=== PATIENT | male | born 2000 ===

== ENCOUNTER 2021-12-21 12:33 | Emergency (ER) | payer SELFPAY ==
[2021-12-21 18:17] LABS: Basophils % (Auto) 0.6 % (0.0-1.8); Eosinophils # (Auto) 0.1 K/mm3 (0.0-0.4); Eosinophils % (Auto) 1.3 % (0.0-4.3); Hematocrit 41.9 % (35.5-45.6); Hemoglobin 14.1 gm/dl (11.8-15.2); Lymphocytes % (Auto) 32.7 % (13.4-35.0); Mean Corpuscular HGB Conc 34 % (32-34); Mean Corpuscular Volume 85 fl (84-94); Monocytes # (Auto) 0.2 K/mm3 (0.0-0.8); Monocytes % (Auto) 3.8 % (0.0-7.3); Platelet Count 225 K/mm3 (140-440); Red Blood Count 4.94 M/mm3 (3.65-5.03); Red Cell Distribution Width 12.3 % (13.2-15.2)
[2021-12-21 18:34] LABS: BUN/Creatinine Ratio 8; Blood Urea Nitrogen 8 mg/dL (9-20); Calcium 9.5 mg/dL (8.4-10.2); Hemolysis Index 7
--- NOTE | 2021-12-22 03:54 | Emergency Department Report ---
ED Psych HPI - General Chief Complaint: Psych Stated Complaint: MH/NOT EATING/NOT TAKING MEDS Time Seen by Provider: 12/21/21 21:12 Source: patient Mode of arrival: Ambulatory - History of Present Illness Initial Comments: Patient is 21-year-old male brought in by law enforcement for psychiatric evaluation. Reports SI and HI. - Related Data Allergies Allergy/AdvReac Type Severity Reaction Status Date / Time Unable to Assess Allergy Unverified 12/21/21 13:32 ED Review of Systems ROS: Stated complaint: MH/NOT EATING/NOT TAKING MEDS Other details as noted in HPI Constitutional: denies: chills, fever Respiratory: denies: cough, shortness of breath, wheezing Cardiovascular: denies: chest pain, palpitations Gastrointestinal: denies: abdominal pain, nausea, diarrhea Musculoskeletal: denies: back pain, joint swelling, arthralgia Skin: denies: rash, lesions Neurological: denies: headache, weakness, paresthesias Psychiatric: denies: anxiety, depression ED Physical Exam - General Limitations: Other General appearance: alert, in no apparent distress - Head Head exam: Present: atraumatic, normocephalic - Respiratory Respiratory exam: Present: normal lung sounds bilaterally. Absent: respiratory distress - Cardiovascular Cardiovascular Exam: Present: regular rate, normal rhythm. Absent: systolic murmur, diastolic murmur, rubs, gallop - GI/Abdominal GI/Abdominal exam: Present: soft, normal bowel sounds - Rectal Rectal exam: Present: deferred - Extremities Exam Extremities exam: Present: normal inspection - Neurological Exam Neurological exam: Present: alert, oriented X3 - Psychiatric Psychiatric exam: Present: suicidal ideation. Absent: homicidal ideation - Skin Skin exam: Present: warm, dry, intact, normal color ED Course Vital Signs 12/21/21 12/22/21 20:10 02:48 Temperature 98.6 F 98.1 F Pulse Rate 61 59 L Respiratory 18 18 Rate Blood Pressure 116/66 116/61 [Left] O2 Sat by Pulse 97 97 Oximetry ED Medical Decision Making - Lab Data Result diagrams: 12/21/21 18:06 12/21/21 18:06 - Medical Decision Making Labs unremarkable. Patient medically cleared. 1013 filed. Awaiting mental health assessment. Critical care attestation.: If time is entered above; I have spent that time in minutes in the direct care of this critically ill patient, excluding procedure time. ED Disposition Clinical Impression: Suicidal ideation Disposition: 30 STILL A PATIENT Is pt being admited?: No Condition: Stable
--- NOTE | 2021-12-22 10:17 | Consultation ---
History of Present Illness - Reason for Consult Consult date: 12/22/21 Reason for consult: SI - History of Present Psychiatric Illness HPI: Patient is 21-year-old male brought in by law enforcement for psychiatric evaluation. Reports SI and HI. The patient was seen today. He says he feels anxious cause he needs to smoke. I advise the patient that this is a smoke free facility and I would give him a patch. The patient says "no, I need to smoke." He says he came here because he was dehydrated. The patient says "I told them I wanted to starve myself to . But it was just talk anyway." The patient denies feeling that way. "he says I don't feel like hurting myself or anybody." The patient denies hallucinations of any kind. He says he has a history of schizophrenia and takes risperidone 2mg twice daily and cogentin. The patient says he is compliant with his medications. He denies any illicit drug use or alcohol. The patient denies any past attempts of suicide. He says "I shouldn't be here. I want to go home. It was just talk." PAST PSYCHIATRIC HISTORY: Diagnoses: Schizophrenia Suicide attempts or Self-harm behavior: Denies Prior psychiatric hospitalizations: Yes Substance Abuse history: Nicotine Previous psychiatric medications tried: Risperidone, cogentin Outpatient treatment: Yes PAST MEDICAL HISTORY: None reported Family Psychiatric History: None reported or documented SOCIAL HISTORY Marital Status: Single Living Arrangements: alone Employment Status: Unemployed Access to guns/weapons: Denies Education: History of Abuse:Denies Legal History: Denies REVIEW OF SYSTEMS Constitutional: Negative for weight loss ENT: Negative for stridor Respiratory: Negative for cough or hemoptysis All other systems reviewed and are negative MENTAL STATUS EXAMINATION General Appearance and Behavior: Age appropriate, wearing appropriate clothes, cooperative, polite with questioning, good eye contact Cooperation: cooperative Psychomotor Behavior: Psychomotor normal Mood: anxious Affect and affective range: congruent with stated affect Thought Process: Goal directed Thought Content: None Speech: Normal volume, Regular rate and rhythm Suicidal Ideation: Denies Homicidal Ideation: Denies Hallucination: Denies Delusions: Denies Impulse Control: Limited Insight and Judgment: Limited Memory: Intact Attention:attentive Orientation: Alert and oriented Diagnoses: Hx of Schizophrenia Treatment Plan d/c 1013 Continue home medications Sitter: per primary Medical: Per primary Disposition: Do not recommend acute psychiatric inpatient treatment. The patient understands that if SI/HI arise he is to seek immediate assistance The hedis analyst to further discuss safety plan and give all resources Will sign off. Thanks. Case staffed by Dr. Pruitt Medications and Allergies Allergies Allergy/AdvReac Type Severity Reaction Status Date / Time No Known Allergies Allergy Unverified 12/22/21 07:33 Mental Status Exam - Vital signs Last Vital Signs Temp 98.8 F 12/22/21 07:41 Pulse 89 12/22/21 07:41 Resp 20 12/22/21 07:41 BP 119/78 12/22/21 07:41 Pulse Ox 99 12/22/21 07:41 Results Result Diagrams: 12/21/21 18:06 12/21/21 18:06 Abnormal lab results 12/21/21 12/21/21 12/21/21 Range/Units 18:06 18:06 18:06 RDW (13.2-15.2) % BUN 8 L (9-20) mg/dL Glucose 118 H (75-100) mg/dL Salicylates < 0.3 L (2.8-20.0) mg/dL Acetaminophen 5.0 L (10.0-30.0) ug/mL 12/21/21 Range/Units 18:06 RDW 12.3 L (13.2-15.2) % BUN (9-20) mg/dL Glucose (75-100) mg/dL Salicylates (2.8-20.0) mg/dL Acetaminophen (10.0-30.0) ug/mL All other labs normal.
[2021-12-22] MEDS ORDERED: LORazepam 2 MG/ML VIAL IM PRN (11:54)
[2021-12-22] MEDS ORDERED: HALOPERIDOL LACTATE 5 MG/1 ML INJ IM PRN (11:54)
--- NOTE | 2021-12-22 11:56 | Event Note ---
Date: 12/22/21 The patient was evaluated in the emergency department for symptoms described in the history of present illness. He/she was evaluated in the context of the global COVID-19 pandemic, which necessitated consideration that the patient might be at risk for infection with the virus that causes COVID-19. Institutional protocols and algorithms that pertain to the evaluation of patients at risk for COVID-19 are in a state of rapid change based on information released by regulatory bodies including the CDC and federal and state organizations. These policies and algorithms were followed during the patient's care in the emergency department. Please note that these policies, procedures and recommendations changed on a rapid basis. Laboratory studies, vital signs, nursing documentation, ER documentation, and psychiatric documentation are reviewed and appreciated. Nursing team reports no acute events this morning or concerns. The patient is awake and does not appear to be in any acute distress The patient was deemed medically suitable for psychiatric disposition and placement during his initial ER evaluation. The patient continues to remain medically suitable for psychiatric placement and disposition. He is currently pending psychiatric placement. The psychiatric team have advised initiation of 1013, and state that they will fill out a 1013. As needed medications ordered. Currently awaiting urinalysis, drug screen and COVID swab. These laboratory test do not preclude psychiatric placement disposition at this time, the patient at this point time does not appear to have an emergent medical condition which would preclude psychiatric disposition Vital Signs 12/21/21 12/22/21 12/22/21 20:10 02:48 03:00 Temperature 98.6 F 98.1 F Pulse Rate 61 59 L Respiratory 18 18 Rate Blood Pressure 116/66 116/61 [Left] O2 Sat by Pulse 97 97 100 Oximetry 12/22/21 12/22/21 07:38 07:41 Temperature 98.8 F Pulse Rate 89 Respiratory 20 Rate Blood Pressure 119/78 [Left] O2 Sat by Pulse 99 99 Oximetry Lab Results 12/21/21 12/21/21 12/21/21 Range/Units 18:06 18:06 18:06 WBC (4.5-11.0) K/mm3 RBC (3.65-5.03) M/mm3 Hgb (11.8-15.2) gm/dl Hct (35.5-45.6) % MCV (84-94) fl MCH (28-32) pg MCHC (32-34) % RDW (13.2-15.2) % Plt Count (140-440) K/mm3 Lymph % (Auto) (13.4-35.0) % Leslie % (Auto) (0.0-7.3) % Eos % (Auto) (0.0-4.3) % Baso % (Auto) (0.0-1.8) % Lymph # (Auto) (1.2-5.4) K/mm3 Leslie # (Auto) (0.0-0.8) K/mm3 Eos # (Auto) (0.0-0.4) K/mm3 Baso # (Auto) (0.0-0.1) K/mm3 Seg Neutrophils % (40.0-70.0) % Seg Neutrophils # (1.8-7.7) K/mm3 Sodium 142 (137-145) mmol/L Potassium 3.6 (3.6-5.0) mmol/L Chloride 104.0 (98-107) mmol/L Carbon Dioxide 26 (22-30) mmol/L Anion Gap 16 mmol/L BUN 8 L (9-20) mg/dL Creatinine 1.0 (0.8-1.3) mg/dL Estimated GFR > 60 ml/min BUN/Creatinine Ratio 8 % Glucose 118 H (75-100) mg/dL Calcium 9.5 (8.4-10.2) mg/dL Salicylates < 0.3 L (2.8-20.0) mg/dL Acetaminophen 5.0 L (10.0-30.0) ug/mL Plasma/Serum Alcohol (0-0.07) % 12/21/21 12/21/21 Range/Units 18:06 18:06 WBC 6.2 (4.5-11.0) K/mm3 RBC 4.94 (3.65-5.03) M/mm3 Hgb 14.1 (11.8-15.2) gm/dl Hct 41.9 (35.5-45.6) % MCV 85 (84-94) fl MCH 29 (28-32) pg MCHC 34 (32-34) % RDW 12.3 L (13.2-15.2) % Plt Count 225 (140-440) K/mm3 Lymph % (Auto) 32.7 (13.4-35.0) % Leslie % (Auto) 3.8 (0.0-7.3) % Eos % (Auto) 1.3 (0.0-4.3) % Baso % (Auto) 0.6 (0.0-1.8) % Lymph # (Auto) 2.0 (1.2-5.4) K/mm3 Leslie # (Auto) 0.2 (0.0-0.8) K/mm3 Eos # (Auto) 0.1 (0.0-0.4) K/mm3 Baso # (Auto) 0.0 (0.0-0.1) K/mm3 Seg Neutrophils % 61.6 (40.0-70.0) % Seg Neutrophils # 3.8 (1.8-7.7) K/mm3 Sodium (137-145) mmol/L Potassium (3.6-5.0) mmol/L Chloride (98-107) mmol/L Carbon Dioxide (22-30) mmol/L Anion Gap mmol/L BUN (9-20) mg/dL Creatinine (0.8-1.3) mg/dL Estimated GFR ml/min BUN/Creatinine Ratio % Glucose (75-100) mg/dL Calcium (8.4-10.2) mg/dL Salicylates (2.8-20.0) mg/dL Acetaminophen (10.0-30.0) ug/mL Plasma/Serum Alcohol < 0.01 (0-0.07) %
[2021-12-22] MEDS ORDERED: risperiDONE 1 MG TAB PO SCH (12:00)
[2021-12-22] MEDS ORDERED: BENZTROPINE 0.5 MG TAB PO SCH (12:00)
[2021-12-22 12:08] LABS: Mucus,Urine 2+ /HPF; RBC,Urine < 1.0 /HPF (0.0-6.0)
[2021-12-22 12:13] LABS: Bilirubin,Urine Negative (Negative); Blood,Urine Negative (Negative); Color,Urine Yellow (Yellow)
[2021-12-22 12:14] LABS: PH,Urine 6.5 (5.0-7.0); Protein,Urine 300 mg/dL mg/dL (Negative); Urobilinogen,Urine < 2.0 mg/dL (<2.0)
[2021-12-22 12:30] LABS: Amphetamine Screen,Urine Negative; Benzodiazepines Screen,Urine Negative; Cocaine Screen,Urine Negative; Methadone Screen,Urine Negative; Opiate Screen,Urine Negative
[2021-12-22 12:55] LABS: Cannabinoid Screen,Urine Positive
[2021-12-22 21:00] VITALS: BP 105/73
== END 2021-12-23 08:45 | disposition still patient (30) ==
LOC: ED 12:33
DX: R45.851 Suicidal ideations (principal)
CPT/HCPCS: 36415; 80048; 80307; 80320; 81001; 85025; 99284; 99285; G0480